=== PATIENT | female | born 1950 | race Caucasian/White ===

== ENCOUNTER 2016-12-01 05:37 | Emergency (ER) | payer OTHER ==
[~2016-12-01] VITALS: Ht 172.7 cm; Wt 90.9 kg
[2016-12-01] MEDS ORDERED: PEPCID20 MG PO (07:11)
[2016-12-01] MEDS ORDERED: BENADRYL25 MG PO (07:11)
[2016-12-01] MEDS ORDERED: MEDROL DOSEPAK4 MG PO (07:11)
[2016-12-01] MEDS ORDERED: DOXYCYCLINE HY100 MG PO (07:25)
[2016-12-01 07:56] VITALS: BP 146/78
== END 2016-12-01 07:57 | disposition home or self-care (01) ==
LOC: EME 05:37
DX: T78.40XA Allergy, unspecified, initial encounter (principal); T49.0X5A Adverse effect of local antifungal, anti-infective and anti-inflammatory drugs, initial encounter; I10 Essential (primary) hypertension; K21.9 Gastro-esophageal reflux disease without esophagitis; Z96.659 Presence of unspecified artificial knee joint
CPT/HCPCS: 99281; 99284; J1200; J7030; J7512; S0028